=== PATIENT | male | born 1990 | race Caucasian/White ===

== ENCOUNTER 2023-03-06 23:27 | Emergency (ER) | payer BC, SELFPAY ==
[2023-03-06 23:37] VITALS: BP 132/70; PULSE 96; RESP 18; TEMP 36.4; O2SAT 99
[2023-03-06 23:45] VITALS: BP 130/67; PULSE 68; RESP 18; TEMP 36.4; O2SAT 99
[2023-03-07] MEDS: OMEPRAZOLE 20 MG CAPSULE DR PO (00:15)
[2023-03-07] MEDS: ONDANSETRON ODT 4 MG TAB PO (00:15)
--- NOTE | 2023-03-07 00:17 | ED.GENADULT ---
HPI - General Adult General Chief complaint: Abdominal Pain Stated complaint: Shakey, abdominal pain Time Seen by Provider: 03/06/23 23:33 History of Present Illness HPI narrative: 29-year-old male with a history of ADHD presents emergency department for evaluation of epigastric area abdominal pain for the past day and half. Accompanied by some mild nausea, no vomiting. He feels weak and generally unwell. There has been no fever. No injury or trauma. He tried taking 1 Tylenol earlier this evening with no significant improvement in his symptoms. Has not tried antacids. Pain is located in the periumbilical and epigastric region, constant. He is able to eat with no significant anorexia. He had loose stools a day and half ago, no bowel movement today. No blood in his stools, no emesis. No dysuria. He does note darker than usual urine but no nickie blood. Does not drink alcohol, does not smoke. No anticoagulants. No prior history of similar symptoms. Has had a prior abdominal surgery with an appendectomy, uncomplicated in the past. No history of colonoscopy or endoscopy. He reports that he has been referred for colonoscopy but did not keep his appointment. I am uncertain of the significance of this and how it is pertinent to his acute symptoms. He seemed frustrated that I did not understand the connection. He reports his past medical history is notable for ADHD. His only home medication is methylphenidate 40 mg once daily. No allergies. No alcohol or tobacco. ROS notable for the abdominal symptoms as above, otherwise denies times 12 systems. Related Data Home Medications Medication Instructions Recorded Confirmed methylphenidate HCl 40 mg biphasic 40 mg PO DAILY 03/06/23 03/06/23 50-50 capsule,extended release Allergies Allergy/AdvReac Type Severity Reaction Status Date / Time No Known Drug Allergies Allergy Verified 03/06/23 23:45 Exam Const: Vital Signs, click to edit/add: Vital Signs - 24 hr 03/06/23 23:37 Temperature 97.6 F Pulse Rate [Pulse Oximeter] 96 Respiratory Rate 18 Blood Pressure [Le ft Upper Arm] 132/70 Pulse Oximetry 99 Oxygen Delivery Me thod Room Air Documenting provider has reviewed patient's vital signs: yes Common normals: no apparent distress General appearance: cooperative, comfortable and well kempt Other: Appears well-nourished, well-hydrated, non ill-appearing HENMT: Common normals: normocephalic Head and scalp: normocephalic Face and sinus: normal facial exam Mouth: oral and palatal mucosa normal Eye: Common normals: conjunctivae normal General eye: normal appearance of both eyes Conjunctiva: conjunctiva(e) normal Neck & C-Spine: Common normals: full ROM and no lymphadenopathy Resp: Common normals: normal respiratory effort, no use of accessory muscles and clear to auscultation bilaterally Effort & inspection: able to speak in complete sentences Auscultation: clear to auscultation bilaterally Cardio: Common normals: regular rate, regular rhythm, S1 normal heart sound, S2 normal heart sound and no murmurs Rate: regular rate Rhythm: regular rhythm Heart sounds: S1 normal and S2 normal GI: Common normals: Normal to inspection, nondistended, normoactive bowel sounds present, soft to palpation, no hepatosplenomegaly and no masses Palpation: soft and no hepatosplenomegaly Other: Mildly tender to epigastric region only. No masses, no rebound tenderness or guarding. Psych: Appearance: well kempt Other: A little irritable, but judgment seems normal. Insight fair. Skin: Common normals: no rashes or lesions noted General skin exam: no rashes or lesions noted Course Course ED Course: Exam very reassuring. No anorexia or fever. Vital signs are stable. Recommended a trial of oral omeprazole, Zofran and ibuprofen. Basic labs. No imaging unless abnormal labs. Urinalysis recommended. Await labs. Reevaluation(s) Time of Reevaluation #1: 01:57 Reevaluation #1: Reviewed findings with patient, other than the mild leukocytosis, overall reassuring. He has had more time to ponder on his symptoms and he believes that they were stress-induced, also worsened by use of an energy drink which he does not typically drink. He feels like he would be better if he could go home and rest for a couple of days and requests a note from work. He thinks that increased stress and working too many hours recently is likely the root of his symptoms. I counseled them that I do think that this is likely a factor but he could certainly have viral gastroenteritis as well. I recommended kiyc-aah-mvyfcoe omeprazole once daily for at least the next week and primary care follow-up if things are not improving within a couple of weeks. Alarm symptoms reviewed that would warrant ED presentation. He verbalizes understanding and agreement. Vital Signs Vital signs: Initial Vital Signs Temperature 97.6 F 03/06/23 23:37 Temperature Source Temporal Artery Scan 03/06/23 23:37 Pulse Rate 96 03/06/23 23:37 Respiratory Rate 18 03/06/23 23:37 Blood Pressure 132/70 03/06/23 23:37 Blood Pressure Mean 90 03/06/23 23:37 Blood Pressure Position Sitting 03/06/23 23:37 Pulse Oximetry 99 03/06/23 23:37 Oxygen Delivery Method Room Air 03/06/23 23:37 Vital Signs Temperature 97.6 F 03/06/23 23:37 Pulse Rate 96 03/06/23 23:37 Respiratory Rate 18 03/06/23 23:37 Blood Pressure 132/70 03/06/23 23:37 Pulse Oximetry 99 03/06/23 23:37 Oxygen Delivery Method Room Air 03/06/23 23:37 Temperature 97.6 F 03/06/23 23:37 Pulse Rate 96 03/06/23 23:37 Respiratory Rate 18 03/06/23 23:37 Blood Pressure 132/70 03/06/23 23:37 Pulse Oximetry 99 03/06/23 23:37 Oxygen Delivery Method Room Air 03/06/23 23:37 Medical Decision Making Lab Data Lab results reviewed: Yes I reviewed the patient's lab results Lab results narrative: Mild leukocytosis, otherwise reassuring. There are no signs of sepsis, tachycardia, hypotension or fever. Labs: Lab Results 03/07/23 03/07/23 03/07/23 Range/Units 00:22 00:28 01:12 WBC 14.03 H (4.50-11.00) K/uL RBC 4.79 (4.30-5.90) m/uL Hgb 14.2 (13.5-17.5) gm/dL Hct 40.5 (37.0-53.0) % MCV 85 (80-100) fL MCH 30 (26-34) pg MCHC 35 (32-36) gm/dL RDW Coeff of Carmelita 11.9 (11.5-15.5) % Plt Count 306 (140-440) K/uL Neut % (Auto) 71.1 (42.0-72.0) % Lymph % (Auto) 21.5 (20-44) % Carlton % (Auto) 6.8 (0.0-11.0) % Eos % (Auto) 0.3 (0.0-7.0) % Baso % (Auto) 0.1 (0.0-3.0) % Neut # (Auto) 10.00 H (1.7-7.0) K/uL Lymph # (Auto) 3.00 H (0.90-2.90) K/uL Carlton # (Auto) 1.00 H (0.00-0.90) K/UL Eos # (Auto) 0.00 (0.00-0.50) K/uL Baso # (Auto) 0.00 (0.00-0.30) K/uL Abs Immat Gran (auto) 0.00 (0.00-0.30) K/uL Imm/Tot Granulo (auto) 0.2 % Sodium 137 (135-149) mmol/L Potassium 4.0 (3.6-5.1) mmol/L Chloride 100 (96-114) mmol/L Carbon Dioxide 27 (20-32) mmol/L Anion Gap 10 (7-15) mEq/L BUN 13 (5-24) mg/dL Creatinine 0.9 (0.5-1.5) mg/dL Estimated GFR 118 ml/min Glucose 88 (60-115) mg/dL Calcium 9.7 (8.4-10.6) mg/dL Total Bilirubin 0.5 (0.1-1.5) mg/dL AST 41 H (12-35) U/L ALT 34 (4-50) U/L Alkaline Phosphatase 51 (40-150) U/L C-Reactive Protein < 0.5 L (0.5-1.0) mg/dL Total Protein 7.7 (6.0-8.3) g/dL Albumin 4.7 (3.3-5.0) g/dL Lipase 46 (23-300) U/L Urine Color Yellow (Yellow) Urine Appearance Clear (Clear) Urine pH 6.5 (5.0-8.5) Ur Specific [place] 1.010 (1.000-1.030) Urine Protein Negative (Negative) Urine Glucose (UA) Negative (Negative) Urine Ketones Negative (Negative) Urine Blood Negative (Negative) Urine Nitrite Negative (Negative) Urine Bilirubin Negative (Negative) Urine Urobilinogen 0.2 (0.2-1.0) Ur Leukocyte Esterase Negative (Negative) Urine RBC 0-2 (0-2) Urine WBC 0-2 (0-5) Ur Squamous Epith Cells None (None-Few) Urine Bacteria None (None) SARS-CoV-2 (PCR) Negative SARS-CoV-2 (Negative) Influenza Type A (PCR) Negative PCR FLU A (Negative) Influenza Type B (PCR) Negative PCR FLU B (Negative) RSV (PCR) Negative PCR RSV (Negative) Discharge Plan Discharge Clinical Impression: Gastritis Patient Disposition: Home, Self-Care Condition: Stable Instructions: Gastritis (DC) Additional Instructions: As we discussed, there are no signs of any significant major illness or injury today. This is good news. I agree with you that stress and the energy drink that you had today likely flared your symptoms. I would not recommend energy drinks or any carbonated beverages for the next few weeks. I would like for you to take tonight and tomorrow night off of work, then you may resume work as usual. Sleep and eat well and try to relax. I do recommend that you use an xrbo-byf-xumsamm stomach acid medicine like omeprazole once daily before a meal for the next 7 days to help your stomach heal. If he start running a high fever, have bloody vomit, significantly bloody stools and or other significant abnormalities, come back to the emergency department. Otherwise if her symptoms fail to improve in a few weeks of taking the mvaq-vvr-ekkysxz omeprazole, would recommend he follow up with her primary care provider to discuss an endoscopy or other further workup. Activity Level: Activity as Tolerated Discharge Diet: Regular Prescriptions: No Action methylphenidate HCl 40 mg capsule,ER biphasic 50-50 40 mg PO DAILY Follow Up/Referrals: Provider,Not a Local [Primary Care Provider] - Stand Alone Forms: [employer] Info Instructions
[2023-03-07 00:34] LABS: Basophils Percent Auto 0.1 % (0.0-3.0); Eosinophils Percent Auto 0.3 % (0.0-7.0); Hematocrit 40.5 % (37.0-53.0); Hemoglobin* 14.2 gm/dL (13.5-17.5); Immature Granulocytes Pct Auto 0.2 %; Lymphocytes Percent Auto 21.5 % (20-44); Mean Corpuscular HGB Conc 35 gm/dL (32-36); Mean Corpuscular Hemoglobin 30 pg (26-34); Mean Corpuscular Volume 85 fL (80-100); Monocytes Percent Auto 6.8 % (0.0-11.0); Neutrophils Percent Auto 71.1 % (42.0-72.0); Platelet Count* 306 K/uL (140-440); RDW Coefficient of Variation % 11.9 % (11.5-15.5); Red Blood Count 4.79 m/uL (4.30-5.90); White Blood Count* 14.03 K/uL (4.50-11.00)
[2023-03-07 00:38] LABS: Slide Review Reflex No
[2023-03-07 00:50] LABS: Albumin* 4.7 g/dL (3.3-5.0); Chloride* 100 mmol/L (96-114); Sodium* 137 mmol/L (135-149)
[2023-03-07 00:53] LABS: Alkaline Phosphatase* 51 U/L (40-150); Anion Gap 10 mEq/L (7-15); Aspartate Amino Transferase* 41 U/L (12-35); Bilirubin Total* 0.5 mg/dL (0.1-1.5); Blood Urea Nitrogen* 13 mg/dL (5-24); Carbon Dioxide* 27 mmol/L (20-32); Creatinine* 0.9 mg/dL (0.5-1.5); Estimated Glomerular Filt Rate 118 ml/min; Lipase* 46 U/L (23-300); Total Protein* 7.7 g/dL (6.0-8.3)
[2023-03-07 00:54] LABS: Alanine Aminotransferase* 34 U/L (4-50); Calcium* 9.7 mg/dL (8.4-10.6); Glucose* 88 mg/dL (60-115)
[2023-03-07 00:56] LABS: C Reactive Protein* < 0.5 mg/dL (0.5-1.0)
[2023-03-07 01:12] LABS: PCR FLU A Negative PCR FLU A (Negative); PCR FLU B Negative PCR FLU B (Negative); PCR RSV Negative PCR RSV (Negative)
[2023-03-07 01:13] LABS: SARS PCR* Negative SARS-CoV-2 (Negative)
[2023-03-07 01:17] LABS: Appearance Urine Clear (Clear); Bilirubin Urine Negative (Negative); Blood Urine Negative (Negative); Color Urine Yellow (Yellow); Glucose Urine Negative (Negative); Ketones Urine Negative (Negative); Leukocyte Esterase Urine Negative (Negative); Nitrite Urine Negative (Negative); Protein Urine Negative (Negative); Urobilinogen Urine 0.2 (0.2-1.0); pH Urine 6.5 (5.0-8.5)
[2023-03-07 01:25] LABS: RBC Urine 0-2 (0-2); WBC Urine 0-2 (0-5)
== END 2023-03-07 02:23 | disposition home or self-care (01) ==
PROVIDERS: Emergency Provider Family Medicine
DX: K29.70 Gastritis, unspecified, without bleeding (principal)
CPT/HCPCS: 36415; 80053; 81001; 83690; 85025; 86140; 87631; 99283; 99284; A9270

== ENCOUNTER 2024-12-20 16:46 | Emergency (ER) | payer BC, SELFPAY ==
--- OUTSIDE RECORDS SUMMARY | 2024-12-20 16:49 | XMS_ITS | Encounter Summary ---
Author Organization [employer] Address [address] [place] [id number] Care Team Providers Care Ampoule Sealer Name Role Phone Eleazar Pandey MD Primary Care Provider [phone] Reason for Visit * Reason Comments Refill methylphenidate (RIT ELBA LA) 40 MG 24 hour release capsule Encounter Details Date Type Department Care Team (Late st Contact Info) Description 11/28/2024 Refill [facility] Medicine [address] [place], [place] [id number] Eleazar Pandey MD [address] [facility] [address] [place] [address] Refill (methylphenidate (RITALIN LA) 40 MG 24 hour release capsule) Social History Tobacco Use Types Packs/Day Years Used Date Smoking Tobacco: Former Cigarettes 1 17.5 0 06/15/2005 - 12/03/2022 Smokeless Tobacco: Never Comments:Vaping Alcohol Use Standard Drinks/Week Comments Never 0 (1 standard drink = 0.6 oz pur e alcohol) AUDIT-C Answer Date Recorded Frequency of Alcohol Consumption Never 02/01/2019 Average Number of Drinks Not on file 019 Frequency of Binge Drinking Not on file 01/14 PHQ-2 Answer Date Recorded PHQ-2 Score 6 01/06/2023 Sex and Gender Information Value Date Recorded Sex Assigned at Not on file Legal Sex Male 12:24 PM CDT Gender Identity Not on file Sexual Orientation Not on file documented as of this encounter Nursing Notes * Rain Price - 12/05/2024 1:30 PM CDT Made second attempt to contact patient. Was able to leave a detailed voicemail. Letter was not sent. Closing encounter. * Soraida Garcia - 11/29/2024 1:06 PM CDT ([facility]: If caller has no additional questions after reading below message, update note and close encounter) Left message for patient to call back. [facility] ([facility]), please inform patient of below message. LVM for advising his medication was refilled for a 30-day supply, and he's due for a follow-up within that time. If Dr. Pandey's schedule isn't available then the patient may need to see one of his resident colleagues. * Eleazar Pandey MD - 11/28/2024 10:54 AM CDT One month filled. Please contact to schedule med check with me or resident. Thanks, ZTM * Allegra Mars RN - 11/28/2024 10:36 AM CDT Further Assistance Needed on Refill from Clinician RN reviewed. Medication not listed on standing order. Last visit: 05/05/24 ([facility] FLA[facility]OR ATTENDANT [facility] advised follow up 6 months) Future visit: -- Review pended order for accuracy and sign if appropriate and Route to Front Line to schedule appointment Requested Prescriptions Pending Prescriptions Disp Refills methylphenidate (RITALIN LA) 40 MG 24 hour release capsule 30 Capsule 0 Sig: Take 1 Capsule (40 mg) by mouth daily for 30 days. 1 of 3 methylphenidate (RITALIN LA) 40 MG 24 hour release capsule 30 Capsule 0 Sig: Take 1 Capsule (40 mg) by mouth daily for 30 days. 2 of 3 Do not start before December 28, 2024. methylphenidate (RITALIN LA) 40 MG 24 hour release capsule 30 Capsule 0 Sig: Take 1 Capsule (40 mg) by mouth daily for 30 days. 3 of 3 Do not start before January 27, 2025. * Eugenia Pickett - 11/28/2024 9:13 AM CDT Pt states he is out of meds documented in this encounter Plan of Treatment Upcoming Encounters Date Type Department Care Team (Late st Contact Info) Description 12/21/2024 10:15 AM CDT Telemedicine [place] [id number] [place] [address] Eleazar Harris MD [address] [place] [address] documented as of this encounter Visit Diagnoses Diagnosis Attention deficit hyperactivity disorder, combined type (HRC) Attention deficit disorder with hyperactivity documented in this encounter Care Teams Ampoule Sealer Relationship Specialty Start Date End Date Eleazar Pandey MD [address] [place], [place] [address] PCP - General Family Practice 01/16/23 documented as of this encounter
--- OUTSIDE RECORDS SUMMARY | 2024-12-20 16:49 | XMS_ITS | Clinical Summary ---
Author Organization [employer] Address [facility] [place] [address] Care Team Providers Care Plant Buyer Name Role Phone Pcp, No Primary Care Provider Unavailabl e Allergies No known active allergies Medications hydrOXYzine HCl (ATARAX) 10 mg tabletIndications: Anxiety disorder, unspecified type Take 1 tablet by mouth every 8 hours if needed. 30 tablet 1 9 Active buPROPion (WELLBUTRIN) 100 mg tabletIndications: Depression, major, single episode, moderate (HC),Anxiety disorder, unspecified type Take 1 tablet by mouth 2 times daily. 30 tablet 9 Active buPROPion (WELLBUTRIN XL) 150 mg Extended-Release tabletIndications: Anxiety disorder, unspecified type,Depression, major, single episode, moderate (HC) TAKE 1 TABLET BY MOUTH EVERY MORNING 30 tablet 9 Active hydrocortisone 1 % creamIndications:H emorrhoids, unspecified hemorrhoid type Apply topically to affected area(s) 2 times daily. 1 Tube 9 Active psyllium (METAMUCIL) packetIndications: Hemorrhoids, unspecified hemorrhoid type Take 1 Packet by mouth once daily. 10 Packet 9 Active methylPREDNISolone (MEDROL DOSEPAK) 4 mg tabletIndications: Chronic bilateral low back pain without sciatica Take by mouth as instructed per packaging. 1 Package 1 Active ondansetron (ZOFRAN ODT) 4 mg disintegrating tabletIndications: Gastroenteritis,Na usea and vomiting, unspecified vomiting type Place 1 Tablet (4 mg) on the tongue every 8 hours if needed for Nausea/Vomitin g. 10 Tablet 2 Active nicotine 21 mg/24 hr (NICODERM; HABITROL) 21 mg/24 hr patch APPLY 1 PATCH TOPICALLY TO THE SKIN EVERY 24 HOURS 1 Active Active Problems No known active problems Resolved Problems Problem Noted Date Diagnosed Date Resolved Date Major depression, recurrent 02/16/2012 04/25/2014 Outbursts of anger 12/22/2011 4 Immunizations Immunization Administration Dates Next Due AMB Influenza, IIV3 (Age >=3 years)(Flu Clinic Only) 03/23/2012,04/07/2011,04/09/2010,2007 AMB Influenza, IIV4 PF (=>6 mos Flulaval,Fluzone Fluarix)(Flu Clinic Only) 03/27/2014 DTP 09/10/1995, 5,06/18/1993,1992 HIB PRP-D (ProHIBIT) 09/10/1995,01/26/19 95,06/18/1993,1992 HPV 9 (Gardasil 9) 02/16/2015 Hepatitis A (Adult) 02/16/2015 Hepatitis B (Peds) 01/26/1995,06/18/1993, 993 Influenza, IIV3 (Age 6-35 mos) 04/07/2011 Influenza, IIV3 (Age >=3 years) 03/23/20 12,04/09/2010,04/11/2008,2006,04/26/2003 Influenza, IIV4 03/27/2014 MMR 10/01/2004,01/26/1995 Oral Polio Vaccine 01/26/1995,06/18/1993, 993 Td (Age >=7 Years) 10/01/2004 Tdap 12/19/2011 Typhoid (injectable) 02/16/2015 Varicella Vaccine 02/16/2015,09/10/1995 Family History Medical History Relation Name Comments Cancer-prostate Maternal Grandfather Diabetes Mother GI Disease Mother Crohns Relation Name Status Comments Brother Alive Father Alive Maternal Grandfather Alive Maternal Grandmother Alive Mother Alive Paternal Grandfather Alive Paternal Grandmother Alive Sister Alive Social History Tobacco Use Types Packs/Day Years Used Date Smoking Tobacco: Every Day Cigarettes 1 6 Started: 04/25/2013; Last attempted to quit: 10/22/2017 Smokeless Tobacco: Never Tobacco Cessation:Ready to Q uit: Yes; Counseling Given: Yes Alcohol Use Standard Drinks/Week Comments No 0 (1 standard drink = 0.6 oz pur e alcohol) PHQ-2 Answer Date Recorded PHQ-2 Score 4 11/09/2018 Sex and Gender Information Value Date Recorded Sex Assigned at Not on file 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 Gender Identity Not on file Sexual Orientation Not on file 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 Not on file Not on file Not on file temp Not on file Not on file Not on file Obstetrics History Last Filed Vital Signs Vital Sign Reading Time Taken Comments Blood Pressure 118/67 09/17/2021 7:58 PM CDT Pulse 100 09/17/2021 7:58 PM CDT Temperature 37.3 C (99.1 F) 09/17/2021 7:58 PM CDT Respiratory Rate 18 09/17/2021 7:58 PM CDT Oxygen Saturation 99% 09/17/2021 7:58 PM CDT Inhaled Oxygen Concentration - - Weight 81.6 kg (180 lb) 09/17/2021 7:58 PM CDT Height 180.3 cm (5' 11) 09/17/2021 7:58 PM CDT Body Mass Index 25.1 09/17/2021 7:58 PM CDT Plan of Treatment Health Maintenance Due Date Last Done Comments HIV for age 15-65 11/03/2007 Hepatitis C screening for age 18-79 2010 BMI (ht and wt on same day) for age 18+ 11/10/2019 11/09/2018, 10/12/2017, 07/13/2017, Additional history exists Depression screening for age 12+ 11/10/2019 11/09/2018, 11/04/2017, 02/09/2017 Tetanus booster 12/18/2021 12/19/2011, 10/01/2004 COVID-19 vaccine series ( season) 2024 Influenza Vaccine (#1) 2025 4, 03/27/2014, 03/23/2012, Additional history exists Hepatitis B series for 19+ Completed 01/26, 06/18/1993, 04/11/1993 Pneumococcal series for age 6-49 Aged Out No longer eligible based on patient's age to complete this topic Insurance [address] [place] [id number] [facility] [address] [place] [id number] * Guarantor: KAREEM [place] [employer] ONLY Account Type Relation to Patient Date of Phone Billing Address [facility] [address] [id number] [facility] [place] [address] Care Teams Plant Buyer Relationship Specialty Start Date End Date Pcp, No . PCP - General 09/05/18
--- OUTSIDE RECORDS SUMMARY | 2024-12-20 16:49 | XMS_ITS | Encounter Summary ---
Author Organization [employer] Address [address] [place] [id number] Care Team Providers Care Dynamometer Mechanic Name Role Phone Eleazar Pandey MD Primary Care Provider + [phone] Reason for Visit * Reason Comments Depression Registry Call 2 Encounter Details Date Type Department Care Team (Late st Contact Info) Description 12/19/[address], [address] [place] [address] Kandy Fang, RN Depression Registry Call 2 Social History Tobacco Use Types Packs/Day Years [...] as of this encounter Nursing Notes * Kandy Fang, RN - 12/19/2024 3:59 PM CDT Contacted patient to complete PHQ9. Outcome of call:PHQ9 completed. Kandy Fang RN 12/19/2024, 3:59 PM documented in this encounter Plan of Treatment Upcoming Encounters Date Type Department Care Team (Late st Contact Info) Description 12/21/2024 10:15 AM CDT Telemedicine [facility] [address] [facility] [place] [address] Eleazar Harris MD [address] [place] [address] documented as of this encounter Visit Diagnoses Not on filedocumented in this encounter Care Teams Dynamometer Mechanic Relationship Specialty Start Date End Date Eleazar Pandey MD [address] [facility] [address] [place] [address] PCP - General Family Practice 01/16/23 documented as of this encounter
--- OUTSIDE RECORDS SUMMARY | 2024-12-20 16:49 | XMS_ITS | Clinical Summary ---
Author Organization [employer] Address [address] [place] [address] Care Team Providers Care Retail Sales Vitamin Consultant Name Role Phone Eleazar Pandey MD Primary Care Provider + [phone] Source Comments You are receiving this document as you are listed as the primary care provider,follow-up provider, or the patient has been referred to you for consultation.This is in compliance with the Medicare and[facility] EHR Incentive Program,which states Providers who transition their patient to another setting of careor provider of care or refers their patient to another provider of care shouldprovide summary care record for each transition of care or referral. [employer] Allergies No known active allergies Medications mupirocin (BACTROBAN) 2 % ointment Apply to affected area twice a day for 10 days. 22 g 03/22/20 24 Active omeprazole (PRILOSEC) 20 MG capsule Take 1 Capsule (20 mg) by mouth daily for 30 days. Take 1 hour before a meal. 30 Capsule 1 03/22/20 24 Active methylphenidate (RITALIN LA) 40 MG 24 hour release capsuleIndication s:Attention deficit hyperactivity disorder, combined type (HRC) Take 1 Capsule (40 mg) by mouth daily for 30 days. 1 of 3 30 Capsule 11/29/19 25 025 Active methylphenidate (RITALIN LA) 40 MG 24 hour release capsuleIndication s:Attention deficit hyperactivity disorder, combined type (HRC) Take 1 Capsule (40 mg) by mouth daily for 30 days. 2 of 3 30 Capsule 08/31/19 25 025 Discontinued( Change dosage, directions or form-Same Medication (Will not be on AVS)) methylphenidate (RITALIN LA) 40 MG 24 hour release capsuleIndication s:Attention deficit hyperactivity disorder, combined type (HRC) Take 1 Capsule (40 mg) by mouth daily for 30 days. 30 Capsule 09/02/19 25 025 Discontinued( Change dosage, directions or form-Same Medication (Will not be on AVS)) methylphenidate (RITALIN LA) 40 MG 24 hour release capsuleIndication s:Attention deficit hyperactivity disorder, combined type (HRC) Take 1 Capsule (40 mg) by mouth daily for 30 days. 3 of 3 30 Capsule 09/28/19 25 025 Discontinued( Change dosage, directions or form-Same Medication (Will not be on AVS)) Active Problems Problem Noted Date Diagnosed Date Dyslipidemia 05/05/2024 Nerve injury 03/11/2023 Overview (03/11/2023): Given local injury and recent dizziness and lightheadedness will try topical Gabapentin. If there is an issue with compounding then can sub for oral instead. Controlled substance agreement signed 02/18/2023 Overview (02/18/2023): CONTROLLED SUBSTANCE AGREEMENT Diagnosis: ADHD combined Medication: Ritalin LA Agreement reviewed/signed: yes, January 18, 2023. Long-term refill plan: q 3 months; visits q 6 months Attention deficit hyperactivity disorder, combin ed type 01/20/2023 Overview (01/21/2023): assessment Betsy Freire. 12/2022 Numbness of foot 01/12/2023 Chronic bilateral low back pain with right-sided sciatica 01/12/2023 BRBPR (bright red blood per rectum) 01/12/2023 Resolved Problems Problem Noted Date Diagnosed Date Resolved Date Soft tissue mass 07/28/2023 11/04/2023 Severe episode of recurrent major depressive disorder, without psychotic features 01/08/2023 Generalized anxiety disorder 01/08/2023 07/15/2023 Encounters Date Type Department Care Team Description 12/19/[address] [place] [address] Kandy Fang RN Depression Registry Call 2 12/05/[address] [place] [address] Kandy Fang RN Depression Registry Call 1 11/28/[address] [place] [address] Eleazar Pandey MD Refill (methylphenidate (RITALIN LA) 40 MG 24 hour release capsule) 09/27/[address] [place] [address] Eleazar Pandey MD Refill (methylphenidate (RITALIN LA) 40 MG 24 hour release capsule) from Last 3 Months Immunizations Immunization Administration Dates Next Due 9vHPV (Gardasil 9) 02/16/2015 Flu Vac (3+ yrs) 03/23/2012, 0,04/11/2008,2006,04/26/2003 Flu Vac Preserv Free (3+yrs) 04/07/2011 HepA Adult (19+ yrs) 01/16/2023,02/16/2015 Influenza IIV4 (Quadrivalent ) 0.5mL (02029) 04/15/2018,03/27/2014 MMR 10/01/2004 Td (7+ yrs) 10/01/2004 Tdap 01/16/2023,12/19/2011 Typhoid (Typhim Vi, IM) 02/16/2015 Varicella 02/16/2015 Social History Tobacco Use Types Packs/Day Years Used Date Smoking Tobacco: Former Cigarettes 1 17.5 0 06/15/2005 - 12/03/2022 Smokeless Tobacco: Never Tobacco Cessation:Counseling Given: Not Answered Comments:Vaping Alcohol Use Standard Drinks/Week Comments Never [...] on file Sexual Orientation Not on file Last Filed Vital Signs Vital Sign Reading Time Taken Comments Blood Pressure 145/89 09/06/2024 12:29 PM CDT Pulse 101 09/06/2024 12:29 PM CDT Temperature 36.6 C (97.9 F) 09/06/2024 12:29 PM CDT Respiratory Rate 16 09/06/2024 12:29 PM CDT Oxygen Saturation 98% 09/06/2024 12:29 PM CDT Inhaled Oxygen Concentration - - Weight 98.4 kg (217 lb) 11/04/2023 8:05 AM CDT Height 176 cm (5' 9.29) 08/17/2023 2:44 PM COOPERATIVE EXTENSION AGENT pt report Body Mass Index 31.78 08/17/2023 2:44 PM COOPERATIVE EXTENSION AGENT Plan of Treatment Upcoming Encounters Date Type Department Care Team (Late st Contact Info) Description 12/21/2024 10:15 AM CDT Telemedicine [facility] [address] [place], [place] [id number] Eleazar Harris MD [address] [place] [address] Health Maintenance Due Date Last Done Comments Adult Preventive Visit 2010 HepB Vaccine (1) 11/03/2011 HPV Vaccine (2 - Male 3-dose series) 03/16/2015 02/16/2015 COVID-19 Vaccine (1 - season) 2024 Influenza Vaccine (#1) 2025 8, 03/27/2014, 03/23/2012, Additional history exists DTaP/Tdap/Td Vaccine (4 - Tdap) 01/16/2033 01/16/2023, 12/19/2011, 10/01/2004 Zoster/Shingles Vaccine (1 of 2) 2042 HIV Screening (Preventive Services) Completed 01/12/2023 Hep C Screening (Preventive Services) Completed 01/12/2023 HepA Vaccine Completed 01/16/2023, 02/16/2015 Hib Vaccine Aged Out No longer eligi ble based on patient's age to complete this topic IPV (Polio) Vaccine Aged Out No longe r eligible based on patient's age to complete this topic MCV4 Vaccine Aged Out No longer eligi ble based on patient's age to complete this topic Meningococcal B Vaccine Aged Out No l onger eligible based on patient's age to complete this topic Pneumococcal Vaccine Aged Out No long er eligible based on patient's age to complete this topic Procedures Procedure Name Priority Date/Time Associated Diagnosis Comments HIV 1/2 AG/AB 4TH GEN Routine 01/12/2023 10:41 AM CDT Screening for HIV (human immunodeficiency virus) HEPATITIS C ANTIBODY, WITH REFLEX (ANTI-HCV) Routine 01/12/2023 10:41 AM CDT Need for hepatitis C screening test from Last 3 Months or Most Recently Relevant to Health Maintenance Results * HIV 1/2 Ag/Ab 4th Generation (01/12/2023 10:41 AM CDT) HIV 1/2 Antigen/Antib margret (4th generation) Negative (Non Reactive) Negative (Non Reactive) 01/12/2023 1:24 PM CDT [facility] Comment:HIV-1 p24 Antigen an d HIV-1/HIV-2 Antibody not detected Blood Venipuncture / Unknown 01/12/2023 10:41 AM CDT 01/12/2023 10:42 AM CDT us Edwin Mayes MD LAB_1 Final Result [facility] [address] [place], [place] [address] * Hepatitis C Antibody, with Reflex (01/12/2023 10:41 AM CDT) Hepatitis C Antibody Negative (Non Reactive) Negative (Non Reactive) 01/12/2023 1:24 PM CDT [facility] Comment:Antibodies to HCV no t detected. Does not exclude the possiblity of exposure to HCV. Blood Venipuncture / Unknown 01/12/2023 10:41 AM CDT 01/12/2023 10:42 AM CDT us Edwin Mayes MD LAB_1 Final Result [facility] [address] from Last 3 Months or Most Recently Relevant to Health Maintenance Insurance [place] [facility] Advance Directives * Full Code (Latest Code Status on File) Date Activated Date Inactivated Comments 08/13/2023 4:29 PM 08/13/2023 6:54 PM Care Teams Retail Sales Vitamin Consultant Relationship Specialty Start Date End Date Eleazar Pandey MD [address] [address] PCP - General Family Practice 01/16/23
--- OUTSIDE RECORDS SUMMARY | 2024-12-20 16:49 | XMS_ITS | Encounter Summary ---
Author Organization [employer] Address [address] [place] [address] Care Team Providers Care Manager Shift Name Role Phone Eleazar Pandey MD Primary Care Provider + [phone] Reason for Visit * Reason Comments Depression Registry Call 1 Encounter Details Date Type Department Care Team (Late st Contact Info) Description 12/05/[address], [address] [place] [address] Kandy Fang, RN Depression Registry Call 1 Social History Tobacco Use Types Packs/Day Years [...] of this encounter Nursing Notes * Kandy Fang RN - 12/05/2024 11:57 AM CDT Contacted patient to complete PHQ9. Outcome of call: 1st call attempt. Kandy Fang RN 12/05/2024, 11:57 AM documented in this encounter Plan of Treatment Upcoming Encounters Date Type Department Care Team (Late st Contact Info) Description 12/21/2024 10:15 AM CDT Telemedicine [facility] [address] [place] [address] Eleazar Harris MD [address] [place] [address] documented as of this encounter Visit Diagnoses Not on filedocumented in this encounter Care Teams Manager Shift Relationship Specialty Start Date End Date Eleazar Pandey MD [address] [facility] [address] [place] [address] PCP - General Family Practice 01/16/23 documented as of this encounter
[2024-12-20 16:52] VITALS: BP 170/98; PULSE 97; RESP 18; TEMP 36.6; O2SAT 97; BMI 33.5
--- NOTE | 2024-12-20 19:34 | ED_ITS ---
HPI - General Adult General Date Seen: 12/20/24 Chief complaint: Unspecified Complaint, Adult Stated complaint: just not good Time Seen by Provider: 12/20/24 19:11 History of Present Illness HPI narrative: Very pleasant 34-year-old male presenting to the ER today for bright red blood per rectum and subsequent feeling of weakness, tingling his, abdominal cramping, facial numbness. History from the patient is that he has a family history of a brother with hem orrhoids and possibly colon polyps. He has a sister with Crohn's disease. He does not carry a formal diagnosis of either of these conditions. He has been having episodes of intermittent bright red blood per rectum for the past couple of years. It sounds like these do not happen every day but happened once every couple of months. No clear pattern for them. He had been in contact with his primary care provider a about a year ago in his primary care provider set him up for a colonoscopy. That appointment had been scheduled but then he missed it due to a work problem. He has not followed up with his PCP to get rescheduled yet. For the past 3 days he has been having bright red blood per rectum. He describes that mostly his stools are brown and fairly formed, sometimes even small chunks. He is not having any rectal pain with passing them. He has noted small amounts of bright red blood around the outside of the stool and sometimes little bit of blood mixed in. 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 Today at about 4:00 p.m. he started to feel an urge to have the bathroom. He went to the bathroom and passed a bowel movement that was formed and brown with some small amount of blood around the stool. After that he started to feel little bit of abdominal cramping and about 430 had another urge to defecate. He went to the bathroom and passed mostly just liquid red material. No clots. No maroon stool. He took a picture of the toilet bowl with the blood in it. It the picture does show liquid red blood. After passing the liquid red blood, which he thought was a large volume of stool, he started to feel little bit lightheaded, tingly in his face and just generally weak. Left work and came here to the ER to be evaluated. Now that he is here is feeling better. Still a little bit of abdominal upset and crampy gurgling. He has not had any recent fever. No actual diarrhea. No vomiting. No rectal foreign bodies. No known injury. Related Data Home Medications ?Medication ?Instructions ?Recorded ?Confirmed methylphenidate HCl 40 mg biphasic 40 mg PO DAILY 02/1412/20/24 50-50 capsule,extended release Allergies Allergy/AdvReac Type Severity Reaction Status Date / Time No Known Drug Allergies Allergy Verified 12/20/24 16:58 [facility] Social History Smoking Status: Former smoker What tobacco products do you use: cigarettes Smoking quit date/years: <= 15 years ago Do you use any of these nicotine containing products: None How often do you have a drink containing alcohol: never AUDIT-C Alcohol total score: 0 Non-prescribed substance use: denies use Exam Narrative: Exam Narrative: Constitutional: Appears well-developed and well-nourished. Alert. Conversant. Non toxic. HENT: Head: Atraumatic. Nose: Nose normal. Mouth/Throat: Oral mucosa is clear and moist. no trismus. Pharynx normal. Eyes: Conjunctivae normal. EOM normal. Pupils equal, round, and reactive to light. No scleral icterus. Neck: Normal range of motion. Neck supple. No tracheal deviation present. Cardiovascular: Normal rate, regular rhythm. No gallop. No friction rub. No murmur heard. Symmetric radial artery pulses Pulmonary/Chest: Effort normal. No stridor. No respiratory distress. No wheezes. No rales. No rhonchi . No tenderness. Abdominal: Soft. Bowel sounds normal. No distension. No mass. No tenderness. No rebound. No guarding. Rectal: Pay patient consents reluctant to the to external exam. Exam was performed with the patient standing in the bent over position because evaluation is performed in ER for this not a proper bed. There is a small amount of red blood at the rectal opening. I do not see any visible external hemorrhoids. No visible fissures. No internal digital exam was performed. Musculoskeletal: RUE: Normal range of motion. No tenderness. No deformity LUE: Normal range of motion. No tenderness. No deformity RLE: Normal range of motion. No edema. No tenderness. No deformity LLE: Normal range of motion. No edema. No tenderness. No deformity Lymph: No cervical adenopathy. Neurological: Alert and oriented to person, place, and time. Normal strength. CN II-VII intact. No sensory deficit. GCS eye subscore is 4. GCS verbal subscore is 5. GCS motor subscore is 6. Normal coordination Skin: Skin is warm and dry. No rash noted. No pallor. Normal capillary refill. Psychiatric: Normal mood. Polite but somewhat anxious Const: Vital Signs, click to edit/add: Vital Signs - 24 hr 12/20/24 16:52 12/20/24 21:52 Temperature 97.9 F 98.2 F Pulse Rate [Right Pulse Oximeter] 97 92 Respiratory Rate 18 18 Blood Pressure [Ri ght Upper Arm] 170/98 H 138/95 H Pulse Oximetry 97 98 Oxygen Delivery Me thod Room Air Room Air Course Vital Signs Vital signs: Initial Vital Signs Temperature 97.9 F 12/20/24 16:52 Temperature Source Temporal Artery Scan 12/20/24 16:52 Pulse Rate 97 12/20/24 16:52 Pulse Rhythm Regular 12/20/24 16:52 Pulse Strength 3+ Normal 12/20/24 16:52 Respiratory Rate 18 12/20/24 16:52 Blood Pressure 170/98 H 12/20/24 16:52 Blood Pressure Mean 122 H 12/20/24 16:52 Blood Pressure Position Sitting 12/20/24 16:52 Pulse Oximetry 97 12/20/24 16:52 Oxygen Delivery Method Room Air 12/20/24 16:52 Vital Signs Temperature 97.9 F 12/20/24 16:52 Pulse Rate 97 12/20/24 16:52 Respiratory Rate 18 12/20/24 16:52 Blood Pressure 170/98 H 12/20/24 16:52 Pulse Oximetry 97 12/20/24 16:52 Oxygen Delivery Method Room Air 12/20/24 16:52 Temperature 98.2 F 12/20/24 21:52 Pulse Rate 92 12/20/24 21:52 Respiratory Rate 18 12/20/24 21:52 Blood Pressure 138/95 H 12/20/24 21:52 Pulse Oximetry 98 12/20/24 21:52 Oxygen Delivery Method Room Air 12/20/24 21:52 Medical Decision Making MDM Narrative Medical decision making narrative: Pleasant 34-year-old male presenting to the ER today with bright red blood per rectum he. He has had this off and on for the past couple of years. He has had a couple of episodes of bloody stools over the past 3 days and had to him at work this afternoon. He started to feel anxious and light headed after his 2nd bloody stool so came here to the ER. Fortunately he is hemodynamically stable. Laboratory workup shows normal hemoglobin, normal platelet count, normal coags. At this point I do not think he needs to be admitted for hemoglobin monitoring or emergent transfusion. He is feeling better after being here in the ER. Source for the rectal bleeding is unclear. I do not see any obvious fissure or hemorrhoid on my external exam. He has had this off and on for the past couple of years and does have a family history of Crohn's disease. I do think he needs colonoscopy. This had been scheduled by his PCP about a year ago but he did not go to the appointment. He actually has another appointment with his PCP (virtual visit tomorrow at 10:00 a.m.). I encouraged him to keep that and have his doctor reschedule colonoscopy so we can get a workup for this. Certainly Crohn's as well as other inflammatory bowel syndrome remains in the differential as to internal hemorrhoids, polyps, etc.. At this point I do not see that he is at imminent risk for life-threatening lower GI hemorrhage so I think it is safe for him to discharge home with close outpatient follow-up. Return precautions reviewed. Lab Data Labs: Lab Results 12/20/24 Range/Units 20:25 WBC 13.37 H (4.50-11.00) K/uL RBC 5.03 (4.30-5.90) m/uL Hgb 14.5 (13.5-17.5) gm/dL Hct 42.1 (37.0-53.0) % MCV 84 (80-100) fL MCH 29 (26-34) pg MCHC 34 (32-36) gm/dL RDW Coeff of [place] 12.3 (11.5-15.5) % Plt Count 331 (140-440) K/uL Neut % (Auto) 61.5 (42.0-72.0) % Lymph % (Auto) 28.8 (20-44) % [place] % (Auto) 8.7 (0.0-11.0) % Eos % (Auto) 0.6 (0.0-7.0) % Baso % (Auto) 0.2 (0.0-3.0) % Neut # (Auto) 8.20 H (1.7-7.0) K/uL Lymph # (Auto) 3.90 H (0.90-2.90) K/uL [place] # (Auto) 1.20 H (0.00-0.90) K/UL Eos # (Auto) 0.10 (0.00-0.50) K/uL Baso # (Auto) 0.00 (0.00-0.30) K/uL Abs Immat Gran (auto) 0.00 (0.00-0.30) K/uL Imm/Tot Granulo (auto) 0.2 % INR 0.87 L (0.91-1.10) Discharge Plan Discharge Clinical Impression: Bright red rectal bleeding Patient Disposition: Home, Self-Care Condition: Stable Instructions: Rectal Bleeding (ED) Additional Instructions: As we discussed, please follow-up with your doctor tomorrow morning to discuss the bleeding. Ask your doctor to arrange another colonoscopy so you can have further workup to discover the underlying cause for the bleeding. If you have any problems especially more blood loss, worsening abdominal pain, fever, weakness or lightheadedness, or any other concerns, please come back to the ER right away to be rechecked Prescriptions: No Action methylphenidate HCl 40 mg capsule,ER biphasic 50-50 40 mg PO DAILY Follow Up/Referrals: Provider,Not a Local [Primary Care Provider, Family Practice] Stand Alone Forms: Runner Info Instructions
[2024-12-20 20:53] LABS: Hematocrit 42.1 % (37.0-53.0); Hemoglobin* 14.5 gm/dL (13.5-17.5); Immature Granulocytes Pct Auto 0.2 %; Mean Corpuscular HGB Conc 34 gm/dL (32-36); Mean Corpuscular Hemoglobin 29 pg (26-34); Mean Corpuscular Volume 84 fL (80-100); RDW Coefficient of Variation % 12.3 % (11.5-15.5); Red Blood Count 5.03 m/uL (4.30-5.90); White Blood Count* 13.37 K/uL (4.50-11.00)
[2024-12-20 21:17] LABS: INR 0.87 (0.91-1.10); Prothrombin Time 12.6 Seconds
[2024-12-20 21:27] LABS: Immature Granulocytes Abs Auto 0.00 K/uL (0.00-0.30); Lymphocytes Absolute Auto 3.90 K/uL (0.90-2.90); Slide Review Reflex No
[2024-12-20 21:52] VITALS: BP 138/95; PULSE 92; RESP 18; TEMP 36.8; O2SAT 98
== END 2024-12-20 21:56 | disposition home or self-care (01) ==
PROVIDERS: Emergency Provider Emergency Medicine
DX: K62.5 Hemorrhage of anus and rectum (principal)
CPT/HCPCS: 36415; 85025; 85610; 99282; 99283